=== PATIENT | male | born 1975 | race Caucasian/White ===

== ENCOUNTER → 2024-07-31 13:29 | Outpatient (BNVA) | payer MEDICAID, SELFPAY | PROVIDERS: PCP Nurse Practitioner; Referring Provider Nurse Practitioner; Visit Provider Nurse Practitioner | DX: S86.911A Strain of unspecified muscle(s) and tendon(s) at lower leg level, right leg, initial encounter (principal); X58.XXXA Exposure to other specified factors, initial encounter | CPT/HCPCS: 73562 ==

== ENCOUNTER → 2025-04-02 11:05 | Outpatient (BNVA) | payer MEDICAID, SELFPAY | PROVIDERS: PCP Nurse Practitioner; Visit Provider Nurse Practitioner | DX: Z12.5 Encounter for screening for malignant neoplasm of prostate (principal) | CPT/HCPCS: 80053; 80061; 85025; G0103 ==

== ENCOUNTER 2025-04-17 11:09 | Outpatient (CLI) | payer MEDICAID, SELFPAY ==
--- NOTE | 2025-04-17 11:45 | MR_ITS ---
WS: [id number] MRI RIGHT KNEE HISTORY: S86.911A - Strain of unspecified muscle(s) and tendon(s) ... COMPARISON: 07/31/2024 Anterior cruciate ligament: Intact. Posterior cruciate ligament: Intact. Medial collateral ligament: Abnormal medial collateral ligament. MCL is displaced from the joint line by the extruded meniscus. Small amount of fluid surrounds the deep and superficial MCL but there is no tear. Posterior lateral corner structures: Intact. Medial menisci: Partially extruded meniscus from the joint. Intrasubstance degeneration in the posterior horn. Seen best on the axial imaging is increased T2 signal in the mid body highly suspicious for a meniscal tear. There is partial separation of the meniscus from the MCL noted anteriorly. Lateral meniscus: Intact. Normal signal, size and shape. Extensor mechanism: Distal quadriceps tendon and patellar tendons are intact. Fluid and soft tissue: Small suprapatellar joint effusion. No Sheikh's cyst. Osseous and articular structures: Patellofemoral compartment: Normal. Medial compartment: Moderate narrowing the medial compartment. Mild diffuse cartilage thinning with a full-thickness defect along the weightbearing surface of the femoral condyle. Small marginal osteophytes. There is a small amount of marrow edema along the tibial plateau. Lateral compartment: Mild narrowing with well preserved cartilage. MR/MR knee RT wo con* [id number] IMPRESSION: 1. Partial extrusion medial meniscus from the joint line with mild meniscocaps ular separation suspected anteriorly. 2. Intrasubstance degeneration posterior horn medial meniscus. 3. Seen best on the axial imaging is a focal tear in the body of the extruded medial meniscus. 4. Small amount of marrow edema medial tibial plateau. 5. Moderate narrowing medial compartment with diffuse cartilage thinning and a full-thickness defect weightbearing surface femoral condyle.
== END 2025-04-17 11:10 | disposition home or self-care (01) ==
LOC: RAD 11:11
PROVIDERS: PCP Nurse Practitioner; Visit Provider Nurse Practitioner
DX: S86.911A Strain of unspecified muscle(s) and tendon(s) at lower leg level, right leg, initial encounter (principal); X58.XXXA Exposure to other specified factors, initial encounter
CPT/HCPCS: 73721

== ENCOUNTER → 2025-05-21 11:04 | Outpatient (BNVA) | payer MEDICAID, SELFPAY | PROVIDERS: PCP Nurse Practitioner; Visit Provider Nurse Practitioner | DX: S86.911A Strain of unspecified muscle(s) and tendon(s) at lower leg level, right leg, initial encounter (principal); X58.XXXA Exposure to other specified factors, initial encounter; R73.09 Other abnormal glucose | CPT/HCPCS: 80053; 83036; 85025 ==